=== PATIENT | male | born 1955 | race Caucasian/White ===

== ENCOUNTER → 2023-09-17 | Outpatient (CLI) | payer SELFPAY ==
--- NOTE | 2023-09-17 | IMM_PTH ---
PATIENT: LISS GARCÍA LOC: [facility] U#:[id number] AGE/SX: 68/M ROOM: RE09/17/[address]: Dr. Dontrell Belcher MD : 1955 BED: DIS: 09/17/2023 SPEC #: [id number] RECD: 09/18/23 12:13 STATUS: BRYCE REBobbi #: [id number] BRIDGETT: 09/17/23 00:[address]: Dontrell Belcher DEPT: IMMUNOHISTOCHEMISTRY RECD BY: Melvin Estes Tissues: A - PROSTATE RIGHT B - PROSTATE RIGHT D - PROSTATE LEFT Procedures: 34BE12 (add) P40 (add) P40 (initial) PHYSICIAN & INSTITUTION [place] [id number] SPECIMEN INFORMATION: Tissue Source: A- Prostate, right apex, B- Prostate, right mid, D- Prostate, left apex Clinical Info: Elevated PSA Specimen Number: [id number] A,B,D CPT code: 96037 METHODOLOGY: Deparaffinized sections of prefer/formalin-fixed tissue or PAP/DQ stained slides are incubated with monoclonal/polyclonal antibodies/oligonucleotide probes. Localization is made via biotin free immunoperoxidase method. Appropriate controls are performed and reacted as expected. Results on target cell population are indicated in the following table: RESULTS: ANTIBODY / CLONE RESULT Block A P40 (BC28) negative 34BE12 (34BE12) negative Block B P40 (BC28) negative 34BE12 (34BE12) negative Block D P40 (BC28) negative 34BE12 (34BE12) negative These tests were developed and their performance characteristics determined by [facility]. They may not have been cleared or approved by the U.S. Food and Drug Administration. The FDA has determined that such clearance or approval is not necessary. The above immunohistochemical/dualISH markers are ordered and reviewed by the Pathologist. INTERPRETATION: A. Prostate, right apex, biopsy: Adenocarcinoma. B. Prostate, right mid, biopsy: Adenocarcinoma. D. Prostate, left apex, biopsy: Adenocarcinoma. RAPHAEL/ 09/19/23
--- NOTE | 2023-09-17 | PROSBIL_PTH ---
PATIENT: LISS GARCÍA [facility] U#:[id number] AGE/SX: 68/M ROOM: RE09/17/[address]: Dr. Dontrell Belcher MD : 1955 BED: DIS: 09/17/2023 SPEC #: [id number] RECD: 09/17/23 12:01 STATUS: BRYCE POLLACK #: [id number] BRIDGETT: 09/17/23 00:[address]: Dontrell Belcher DEPT: SURGICAL PATHOLOGY RECD BY: Melvin Estes Tissues: A - PROSTATE RIGHT B - PROSTATE RIGHT C - PROSTATE RIGHT D - PROSTATE LEFT E - PROSTATE LEFT F - PROSTATE LEFT Procedures: PROSTATE BX HEADER OPERATION: Prostate biopsy PRE-OP DIAGNOSIS: Elevated PSA TISSUE SUBMITTED: A - Right apex, B - Right mid, C - Right base, D - Left apex, E - Left mid, F - Left base MICROSCOPIC DIAGNOSIS A. Right prostate, apex, core biopsy: Prostatic adenocarcinoma. Irma grade: 3+3=6 Number of cores involved: 1/2 Proportion of tissue involved: <5 % Perineural invasion: Not identified. Greatest tumor length: <0.1 cm Focal high-grade prostatic intraepithelial neoplasia (HGPIN). See comment. B. Right prostate, mid, core biopsy: Prostatic adenocarcinoma. Wilberforce grade: 3+4=6 Number of cores involved: 1/2 Proportion of tissue involved: <5 % Perineural invasion: Not identified. Greatest tumor length: <0.3 cm, discontinues See comment. C. Right prostate, base, core biopsy: Prostatic adenocarcinoma. Wilberforce grade: 3+4=7 Number of cores involved: 2/2 Proportion of tissue involved: ~60 % Perineural invasion: Present Greatest tumor length: 1.1 cm D. Left prostate, apex, core biopsy: Prostatic adenocarcinoma. Irma grade: 3+4=7 Number of cores involved: 1/2 Proportion of tissue involved: ~5 % Perineural invasion: Not identified. Greatest tumor length: 0.2cm See comment. E. Left prostate, mid, core biopsy: Prostatic adenocarcinoma. Wilberforce grade: 3+4=7 Number of cores involved: 2/2 Proportion of tissue involved: 70-80 % Perineural invasion: Present Greatest tumor length: 0.9 cm F. Left prostate, base, core biopsy: Prostatic adenocarcinoma. Wilberforce grade: 3+4=7 Number of cores involved: 2/2 Proportion of tissue involved: 70-80 % Perineural invasion: Present Greatest tumor length: 1.3 cm Focal mild acute and chronic inflammation SJ/mr 09/18/23 COMMENT A, B& D. Immunohistochemistry ([id number]) supports the above diagnosis. MICROSCOPIC DESCRIPTION Slides are reviewed. GROSS DESCRIPTION A - Received is one container designated prostate, right apex. The specimen consists of two elongated fragments of light hood-white soft tissue each measuring 1.0 cm in length and 0.1 cm in diameter. The specimen is totally submitted in one cassette. B - Received is one container designated prostate, right mid. The specimen consists of two elongated fragments of light hood-white soft tissue each measuring 1.1 cm in length and 0.1 cm in diameter. The specimen is totally submitted in one cassette. C - Received is one container designated prostate, right base. The specimen consists of two elongated fragments of light hood-white soft tissue measuring 1.0 and 1.5 cm in length and 0.1 cm in diameter. The specimen is totally submitted in one cassette. D - Received is one container designated prostate, left apex. The specimen consists of two elongated fragments of light hood-white soft tissue measuring 0.8 and 1.0 cm in length and 0.1 cm in diameter. The specimen is totally submitted in one cassette. E - Received is one container designated prostate, left mid. The specimen consists of two elongated fragments of light hood-white soft tissue each measuring 1.1 cm in length and 0.1 cm in diameter. The specimen is totally submitted in one cassette. F - Received is one container designated prostate, left base. The specimen consists of two elongated fragments of light hood-white soft tissue each measuring 1.5 cm in length and 0.1 cm in diameter. The specimen is totally submitted in one cassette. RAPHAEL/ 09/17/23 TC:0 CPT: G0146
== END | disposition home or self-care (01) ==
LOC: LABSPEC 12:00
PROVIDERS: Visit Provider Urology
DX: R97.20 Elevated prostate specific antigen [PSA] (principal)
CPT/HCPCS: 88305; 88341; 88342; G0416

== ENCOUNTER → 2023-09-30 | Outpatient (CLI) | payer MEDICARE, BC, SELFPAY ==
--- NOTE | 2023-09-30 11:00 | PET_ITS ---
EXAMINATION: 18 F Pylarify PET-CT HISTORY: A 68-year-old male with history of primary prostate carcinoma presenting for presumed initial staging examination. COMPARISON EXAMINATION: None available INDEX LESION SIZE PROMISE SCORE SUV INTERPRETATION Prostate gland, bilateral base 36.4-mm 2 13.15 Fulfills quantitative criteria for viable neoplasm NON-INDEX LESION SIZE PROMISE SCORE SUV INTERPRETATION Bilateral thoracic perihilum 1 2.5 Quantitative criteria for viable neoplasm are not fulfilled TECHNIQUE: Following the intravenous administration of 9.9 mCi of 18 F Pylarify via the right antecubital fossa, image acquisitions of the head, neck, chest, abdomen and pelvis to the level of the mid thigh at 73 minutes post-tracer distribution reveal: The examination was interpreted using the EANM (Enoch et al., Journal of Nuclear Medicine Molecular Imaging 44:1622, 2017) and PROMISE (Mago et al., Journal of Nuclear Medicine 59:469, 2018) interpretive criteria. HEIGHT: 71 inches. WEIGHT: 195 lbs. PSMA expression score PROMISE criteria: High (3): SUV ? parotid-salivary gland, intermediate (2): SUV ? liver, low (1): > blood pool, < liver, (0): < blood pool. SUV reference values: Parotid glands 24.36. Normal liver parenchyma 7.4. Blood pool 1.6. FINDINGS: Head/Neck: Symmetric radiotracer concentration is defined in the bilateral parotid and submandibular glands. There is physiologic tracer activity within the context of the nasal cavity. There is no evidence of abnormal increased radiopharmaceutical concentration within the context of the cranial vault. CHEST: Facilitated uptake is noted in the bilateral thoracic perihilum with a calculated maximal standard uptake value of 2.51. The PROMISE score is 1. Pertinent chest CT findings are as follows. There is atherosclerotic calcification defined in the thoracic aorta without evidence of dilatation-aneurysm formation. Coronary arterial calcification is observed. Scattered mediastinal and bilateral axillary soft tissue densities demonstrate no evidence of increased tracer uptake. There are no parenchymal densities-nodules defined in the bilateral hemithorax with quantitatively significant increased radiotracer uptake. Abdomen/Pelvis: Facilitated uptake is noted in the base of the prostate gland to the right and left of the midline. The calculated maximal standard uptake value is 13.15. The PROMISE score is 2. The maximal axial diameter of the metabolic abnormality is 36.4-mm. Physiologic radiopharmaceutical concentration is otherwise noted in the hepatic and splenic parenchyma, visualized intestinal tract, right and left kidneys, urinary bladder. Review of CT of the abdomen and pelvis reveals the following. There is atherosclerotic calcification defined in the abdominal aorta without evidence of dilatation-aneurysm formation. Abdominal-pelvic arterial calcification is observed. Colonic diverticulosis is evident without manifestations of diverticulitis. Right and left inguinal soft tissue densities are ametabolic. SKELETAL: Degenerative changes are noted in the cervical, thoracic and lumbar spine without evidence of increased radiopharmaceutical concentration. PET/PET/CT Tumor Base -Thigh Init IMPRESSION: 1. ABNORMAL EXAMINATION INDICATIVE OF MALIGNANT VIABLE NEOPLASM. 2. Increased tracer uptake noted in the base of the prostate gland to the left and right of the midline fulfills quantitative criteria for malignant transformation. (Eibronwyn et al., Journal of Nuclear Medicine 59:469, 2018). 3. Facilitated uptake noted in the bilateral thoracic perihilum does not fulfill quantitative criteria for viable neoplasia. Electronic Signature Ramo Baker DO Accurate Quantification of SUVs and standardized PROMISE scores for this report are calculated using the exclusive [employer], ([place].S. Patent No. [phone] [place] patent [phone] ). Standardization and correction of the FDG SUV metric exclusively available with [employer] intellectual property, allow for vendor non-specific objective quantitative sequential FDG PET-CT comparison and otherwise unobtainable optimization of the sensitivity and specificity of the examination. https://[employer] Electronically Signed: Ramo Baker DO at 8:05 EDT ,
== END | disposition home or self-care (01) ==
LOC: ONC 10:33
PROVIDERS: PCP Nurse Practitioner Family; Referring Provider Urology; Visit Provider Urology
DX: C61 Malignant neoplasm of prostate (principal)
CPT/HCPCS: 78815; A9595

== ENCOUNTER 2023-11-12 13:38 | Inpatient (IN) | payer MEDICARE, BC, SELFPAY ==
--- NOTE | 2023-11-03 07:22 | EKG12_ITS ---
Test Reason : PREOP Blood Pressure : / mmHG Vent. Rate : 051 BPM Atrial Rate : 051 BPM P-R Int : 162 ms QRS Dur : 082 ms QT Int : 440 ms P-R-T Axes : 014 -12 039 degrees QTc Int : 405 ms Sinus bradycardia Otherwise normal ECG Confirmed by Williams Verma ([id number]), editor managing director SAMARA BROWN ([id number]) on 11/03/2023 1:57:22 PM Referred By: Dontrell Belcher Confirmed By:Williams Verma
[2023-11-03 07:52] LABS: Hematocrit 46.1 % (40-54); Hemoglobin 15.9 g/dL (13.0-16.5); Mean Corp Hgb Conc 34.5 g/dL (32-36); Mean Corpuscular Hgb 31.2 pg (27.0-32.0); Mean Corpuscular Volume 90.6 fL (80-94); Mean Platelet Vol. 10.9 fl (6.2-12.0); Platelet Count 172 K/mm3 (150-450); RBC Distribution Width CV 12.2 % (11.6-14.6); RBC Distribution Width SD 40.6 fl (35.1-43.9); Red Blood Count 5.09 M/mm3 (4.6-6.2); White Blood Count 6.6 K/mm3 (4.4-11.0)
[2023-11-12] VITALS (15 sets, daily range): BP systolic 97–159; BP diastolic 62–84; PULSE 64–100; RESP 16–20; TEMP 36.1–37.2; O2SAT 94–100; BMI 26.4
--- NOTE | 2023-11-12 06:28 | PRE.ANES_ITS ---
ASA Classification* ASA Classification ASA Classification: 2 Assessment & Plan Anesthesia* Anesthesia Assessment Anesthesia Assessment: Discussed sedation and/or anesthesia options, risks, benefits, and alternatives with patient/parents/legal guardian/POA. Questions invited. The patient/parents/legal guardian/POA seems to understand and agrees to proceed with anesthesia plan. Reviewed the physical assessment, medical history, allergy history and patient home medications list prior to surgery/procedure/anesthetic and documented any changes. Performed airway and anesthesia risk assessments. Anesthesia Type Anesthesia Type: General (see written pre anesthesia record for full assessment) Pre-Assessment Diagnosis/Proposed Procedure Planned Operative Procedure(s): Laparoscopic Robotic Radical Prostatectomy Anesthesia History Anesthesia History - product support representative: Anesthesia History - product support representative Hx Hospitalization No 10/31/23 08:56 Any Problems With Anesthesia No 10/31/23 08:56 Cholinesterase deficiency No 10/31/23 08:56 You/Your Family Experience No 10/31/23 08:56 fever (hyperthermia) with Relationship Recent Exposure to Contagious Disease Does patient have nerve No 10/31/23 08:56 stimulator Patient instructed to have device shut off --Does patient have Pacemaker or ICD? When Was Last Pacemaker Check QUESTION #4 FULL TEXT: You/Your Family Experience fever (hyperthermia) with Anesthesia Last Oral Intake Last Oral intake: Last Oral Intake NPO since Meds taken in AM with sips of water? Meds patient instructed to take am of surgery PONV PONV - product support representative: PONV - product support representative Female No 10/31/23 08:56 HX of Motion Sickness No 10/31/23 08:56 HX of N/V After Surgery No 10/31/23 08:56 Non-Smoker Yes 10/31/23 08:56 Duration of Surgery greater Yes 10/31/23 08:56 than 60 minutes Number of Risk Factors 2 10/31/23 08:56 PONV Score Moderate Risk 10/31/23 08:56 Respiratory Assessment Respiratory Assessment - product support representative: Respiratory Tract Infection Hx - product support representative Hx Respiratory Tract Infection No 10/31/23 08:56 STOP Sleep Apnea STOP Sleep Apnea - product support representative: STOP Sleep Apnea - product support representative Hx Hypertension Yes: WHITE COAT SYNDROME 10/31/23 08:56 Hx Sleep Apnea No 10/31/23 08:56 CPAP BIPAP Do you snore loudly (louder No 10/31/23 08:56 than talking or can be heard Do you often feel tired/ No 10/31/23 08:56 fatigued/ sleepy during daytime? Has anyone observed you stop No 10/31/23 08:56 breathing during sleep? STOP Results Negative 10/31/23 08:56 QUESTION #5 FULL TEXT : Do you snore loudly (louder than talking or can be heard through closed doors)? Tobacco Use History Tobacco Use History - product support representative: Tobacco Use History - product support representative Tobacco Use Smoking Status Never smoker 10/31/23 08:56 Hx Tobacco Use No 10/31/23 08:56 Years Smoking Packs Smoked per Day Smoking Cessation Date was within the last 15 years Hx Smoking Cessation Date Hx Smoking Cessation Counseling Hematologic Medial History Hematologic Hx - product support representative: Hematologic Medical Hx - kiln puller Hx of Blood Transfusion No 10/31/23 08:56 Hx of Transfusion in last 3 No 10/31/23 08:56 Months Date of Last Transfusion (if within last 3 months) Ever experience any problems No 10/31/23 08:56 with transfusion(s)? Specify any problems Hx of Preganancy in last 3 N/A 10/31/23 08:56 Months Nurse Filling Out Transfusion MGRIFFITH 10/31/23 08:56 & Questions: Date: 10/31/23 10/31/23 08:56 Time: 08:58 10/31/23 08:56 Patient unable to answer at this time (ie. confused, unrespo /Reproduction History /Reproductive History - product support representative: /Reproductive Hx- product support representative Hx Now Gestational Age (in weeks): EDC: Hx Hx Para Hx Section SAB Active Medications Active Medications: Current Medications Generic Name Dose Route Start Last Admin Trade Name Freq PRN Reason Stop Dose Admin Cefazolin Sodium 2 gm/ Sodium 110 mls @ 150 mls/hr 11/12/23 07:30 Chloride IV 11/12/23 08:13 PREOP ONE Lactated Ringer's 1,000 mls @ 15 mls/hr 11/12/23 06:30 IV .Q48H [facility] Anesthesia Focused Assessment* Airway Assessment Mouth opens: >3 cm Mallampati Score: II Focused Labs Anesthesia Preop lab: CBC WBC 6.6 K/mm3 (4.4-11.0) 11/03/23 07:25 RBC 5.09 M/mm3 (4.6-6.2) 11/03/23 07:25 Hgb 15.9 g/dL (13.0-16.5) 11/03/23 07:25 Hct 46.1 % (40-54) 11/03/23 07:25 Plt Count 172 K/mm3 (150-450) 11/03/23 07:25 CHEMISTRY COAG Review of Systems (Anesthesia) ROS Narrative System reviewed and no additional complaints, except as documented. 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
[2023-11-12] MEDS: Lactated Ringers 1,000 ML 15 ML IV ×2 (06:39→11:55)
[2023-11-12] MEDS: Cefazolin 2 GM in 0.9% Normal Saline (100mL Bag) 100 ML IV (07:25)
--- NOTE | 2023-11-12 07:29 | PCM.HP.STD ---
HPI - General General Date of Service: 11/12/23 Chief Complaint: Prostate cancer HPI Narrative LISS GARCÍA, is a 68 M who presents robotic assisted radical prostatectomy with bilateral lymph node dissection and bilateral nerve sparing he does have a very large 70 g prostate very high PSA PET scan was only positive in the prostate. [facility] Medical History Wears contact lenses Wears dentures Alcohol use Non-smoker Leg cramps White coat syndrome without diagnosis of hypertension Home Medications ?Medication ?Instructions ?Recorded ?Last Taken ?Type BEET ROOT 800 mg PO DAILY 10/31/23 11/11/23 History garlic 1,000 mg capsule 1,000 mg PO DAILY 10/31/23 11/11/23 History ciprofloxacin HCl 500 mg tablet 500 mg PO BID #20 tabs 11/12/23 Unknown Rx (Cipro) docusate sodium 100 mg capsule 100 mg PO BID #20 caps 11/12/23 Unknown Rx (Colace) oxycodone 5 mg tablet 5 mg PO Q6H PRN pain 7 days #14 11/12/23 Unknown Rx tabs Allergy/AdvReac Type Severity Reaction Status Date / Time No Known Allergies Allergy Verified 10/31/23 08:51 Surgical History History of dental surgery Social History Smoking Status: Never smoker Vital Signs Vital Signs Vital Signs: 11/12/23 06:37 11/12/23 06:41 Temperature 98.3 F Temperature Source Temporal Pulse Rate 64 Respiratory Rate 16 Respiratory Pattern Normal Blood Pressure 159/75 H Blood Pressure Mean 103 Blood Pressure Source Monitor Blood Pressure Position Semi-Fowlers Blood Pressure Location Right Arm Pulse Ox 100 Oxygen Delivery Method Room Air Weight Weight: 86 kg Body Mass Index (BMI) 26.4 Physical Exam Const alert and oriented x3 General Appearance: cooperative HEENT normocephalic, head/scalp atraumatic, EAC's normal and TM's normal bilaterally Eyes PERRL and EOMs intact bilaterally Pupil: sluggish Neck no lymphadenopathy, supple and no JVD General: trachea midline Lymph Lymphatic: no lymphadenopathy noted, lymphedema and lymphadenopathy Resp normal respiratory effort, normal air movement and clear to auscultation bilaterally Cardio regular rate, regular rhythm and peripheral pulses 2+ throughout GI soft to palpation, non-tender and non-distended Extremity normal capillary refill and no clubbing, cyanosis or edema General Extremity: no tenderness to palpation of joints or extremities Skin no rashes or lesions noted General Skin Exam: turgor normal Lesions: no lesions Rashes: no rashes Neuro CN's II-XII intact bilaterally Speech: speech normal Motor Exam: strength 5/5 throughout; Negative for general weakness Psych thought process normal, cooperative and affect normal Appearance: appropriate Results Lab / Micro Data 11/03/23 07:25 Assessment & Plan Assessment/Plan (1) Malignant neoplasm of prostate: PLAN: Plan to proceed with a robotic radical prostatectomy bilateral lymph node dissection and bilateral nerve sparing
--- NOTE | 2023-11-12 07:30 | PROST_PTH ---
PATIENT: LISS GARCÍA LOC: [facility] U#:[id number] AGE/SX: 68/M ROOM: [facility] RE11/12/[address]: Dr. Dontrell Belcher MD : 1955 BED: 1 DIS: 11/13/2023 SPEC #: [id number] RECD: 11/12/23 12:59 STATUS: BRYCE POLLACK #: [id number] BRIDGETT: 11/12/23 07:[address]: Dontrell Belcher DEPT: SURGICAL PATHOLOGY RECD BY: Avtar Cortez ENTERED: 11/12/23 14:00 SP TYPE: PROSTATE OTHR DR: MD Ariadna Bowen, GLUE SIZE MACHINE OPERATOR-C Tissues: A - Lymph node of pelvis, NOS B - Lymph node of pelvis, NOS C - Prostate, NOS Procedures: Surgery Specimen Level V Surgery Specimen Level HEADER OPERATION: Laparoscopic robotic radical prostatectomy PRE-OP DIAGNOSIS: Malignant neoplasm of prostate TISSUE SUBMITTED: A- Left pelvic lymph node, B- Right pelvic lymph node, C- Prostate MICROSCOPIC DIAGNOSIS A. Left pelvic lymph node, regional dissection: One lymph node, negative for metastatic carcinoma. B. Right pelvic lymph node, regional dissection: Two out of two lymph node, negative for metastatic carcinoma. C. Prostate, radical prostatectomy: Prostatic adenocarcinoma. See cancer summary in the comment section. RAPHAEL/ 11/17/2023 COMMENT C. PROSTATE CANCER (RADICAL) SUMMARY: Procedure: Radical Prostatectomy Prostate Size: Weight: 89.0gm Size: 5.5cm transversely, 4.0cm anterior-posteriorly, 5.6cm craniocaudally Histologic Type: Adenocarcinoma Histologic Grade: Grade group 2 (Irma grade 3+4 =7) Intraductal Carcinoma: Present, focal Tumor Quantitation: Estimated percentage of prostate involved by tumor: ~30% Tumor size: Tumor involves both right and left lobes, apical, mid, basal portion prostate. Tumor in the right lobe approximately measures 2.5 x 1.0 x 5.6cm and tumor in the left lobe approximately measures 2.0 x 1.0 x 5.6cm (measured microscopically) Extraprostatic Extension: Present, non-focal. Location of extraprostatic extension: Right lateral and posterior lobe and left lateral and posterior. Urinary Bladder Neck Invasion: Not identified. Seminal Vesicle Invasion: Present (involves both right and left seminal vesicles) Lymphvascular Invasion: Not identified. Perineural Invasion: Present, frequent Margins: Margins involved by invasive carcinoma Largest focus of carcinoma present at apical margin and measures 1.6 x 0.8cm Focality: Multifocal Location of positive margin: Apical, right posterior and left lateral posterior margins. Margin positivity in areas of extraprostatic extension: Not identified. [place] pattern at positive margin: 3+4 Regional Lymph Nodes: Number of lymph nodes involved: 0 Total number of lymph nodes examined: 3 Treatment Effect: No known presurgical therapy Additional Pathologic Findings: High-grade prostatic intraepithelial neoplasia (HGPIN). Chronic inflammation. Benign prostatic hyperplasia, glandular and stromal type. Ancillary studies: Not preformed. Clinical History: Please make reference to previous specimen [id number] right prostate apex, mid and base and left prostate apex, mid, and base core biopsies diagnosis of prostatic adenocarcinoma. PATHOLOGIC STAGE: pT3b pN0 pMx The above summary is in compliance with [employer] [place] [employer] (CAP) Cancer Protocols Checklist and [place] Joint Committee on Cancer (AJCC), Staging Manual, 8th Ed. MICROSCOPIC DESCRIPTION Slides are reviewed. GROSS DESCRIPTION A. Received in fixative is one container labeled with the patient's name and designated Left pelvic lymph node. The specimen consists of an irregular fragment of yellow fatty tissue measuring 3.5 x 2.5 x 1.0cm. Dissection reveals a hood nodule measuring 3.3cm in length. The nodule is serially sectioned and totally submitted in two cassettes. B. Received in fixative is one container labeled with the patient's name and designated Right pelvic lymph node. The specimen consists of two irregular fragments of hood-yellow soft tissue measuring in aggregate 4.5 x 3.0 x 1.0cm. Dissection reveals two hood nodules ranging in size from 2.0 to 2.2cm. Each nodule is bisected and submitted separately in two cassettes. C. Received in fixative is one container labeled with the patient's name and designated prostate. The specimen consists of a prostate with attached right and left seminal vesicles. The gland weighs 89 gm and measures 5.5 cm transversely, 4.0 cm anterior-posteriorly and 5.6 cm craniocaudally. The specimen is differentially inked as follows: anterior surface - red, entire posterior surface - black, right half - blue, left half - green. The specimen is serially sectioned at 3.0 to 4.0 mm interval. Serial sections do not reveal a distinct mass lesion. Lead Sustainability Specialist sections are submitted in 20 cassettes as follows: 1 - distal urethral margin, shave, 2 - bladder neck shave margin, 3 - right and left seminal vesicles, 4 - most basal section of prostate, 5-8- apex of gland,-9 -14- mid portion of gland, 15-18- basal portion of gland. NOTE: The specimen is submitted after additional fixation. AM: 11/13/2023 TC:0 CPT: 39233,84123j5
[2023-11-12] MEDS: Bupivacaine Mpf 0.5% 30 ML VIAL (11:15)
--- NOTE | 2023-11-12 11:18 | DCINST_ITS ---
Discharge Instructions Diet Discharge Diet: Light diet - advance as tolerated and Soft diet Activity Discharge Activity: May Not Drive (while taking narcotic pain medications.) Lifting Restrictions: no lifting > 10 lbs Dressing / Incision Call your doctor if you observe: Fever of 101 or Higher Catheter: Amin to leg bag and Amin to large bag Drain: [place] Additional Dressing/Incision Instructions:: amin to gravity Follow Up Care Please Follow Up With: Dontrell Belcher MD When: Call [phone] for an appointment Test Results: Test results from this visit will be discussed in further detail at your follow- up appointment, if applicable. Discharge Plan Admission Primary Reason for Your Visit: Radical prostatectomy Attending Provider: Dontrell Belcher Primary Care Provider: Ariadna Wylie Consulting Providers: Wesley Mathias Patient Instructions: Radical Prostatectomy, Radical Prostatectomy Dc Print Language: Arabic Discharge Orders/Prescriptions Prescriptions: New ciprofloxacin HCl [Cipro] 500 mg tablet 500 mg PO BID Qty: 20 0RF docusate sodium [Colace] 100 mg capsule 100 mg PO BID Qty: 20 0RF oxycodone 5 mg tablet 5 mg PO Q6H PRN (Reason: pain) 7 Days Qty: 14 0RF Continued garlic 1,000 mg capsule 1,000 mg PO DAILY BEET ROOT 800 mg PO DAILY Other Ambulatory Orders: 12 Lead EKG (Routine) Timeframe: 20231103 Location: None Selected Ordered By: Dr. Wesley Mathias Referrals / Follow Up: Ariadna Wylie, JAVASCRIPT APPLICATION DEVELOPER-C [Primary Care Provider] - Disposition Disposition (needs filled in before D/C Order can be placed): Home, Self Care
--- NOTE | 2023-11-12 11:19 | OP.PCM_ITS ---
Report of Operation Date of Procedure: 11/12/23 Pre-Operative Diagnosis: Prostate cancer Post-Operative Diagnosis: The same Surgery/Procedure Performed:: Laparoscopic robotic assisted radical prostatectomy and bilateral pelvic lymph node dissection, bladder neck reconstruction and suspension of the urethra Description of Surgical Findings:: This is a 68-year-old male with a history of prostate cancer he has a very large prostate but 70 g who has a very high PSA and Irma 7 disease PET scan was positive in the prostate only negative elsewhere but organ to proceed with a radical prostatectomy with an attempt bilateral nerve sparing bladder neck sparing as well and also do a pelvic lymph node dissection. Understands the risk of the procedure risk of incontinence and loss of erections also risk that the cancer is not curative and he may need more surgery or treatment such as radiation or hormone therapy. Patient was taken back to the operating room after induction of anesthesia he was placed upon on the table he was secured using the pink foams both his arms back were secured and that his legs were placed in stirrups we made sure all pressure points were padded and secured we did a tilt test the patient did not slide, the penis and testicles were then prepped and draped in the lower abdomen was also prepped and draped, we then made an incision in the umbilicus infiltrated the umbilicus with Marcaine dissected down to the fascia placed a Veress needle into the peritoneal cavity and placed our camera trocar right arm trocar to left arm trocars air seal port and suction port. The patient was placed in Trendelenburg and the robot was then docked we then proceeded with the dissection first thing I did was released the colon off the lateral sidewall this then allowed the sigmoid colon to be retracted straight off the pelvis and allowed approach to the underside of the prostate I then identified the vas deferens and the right side dissected the vas deferens down below until I got to the endopelvic fascia I then opened up the peritoneum on the left side below the vas deferens and then we dissected first below the vas deferens and the prostate coming through the the fascia below the prostate. I then we did switch to a 30 degree lens up and then continue with the dissection of the prostate I then dissected out the vas deferens and seminal vesicles I then came through the pedicle on the left side right on the edge of the prostate and then we sweep the tissue laterally both sides of the prostate and then the right side we swept all the tissue off the underside of the prostate laterally as well and then we came through the pedicles on the left side was dissected out the vas deferens and seminal vesicles on the left side once we done the underside dissection of the prostate extensively then at this point I pulled out of the pelvis we did not drop the bladder I then proceeded with the lymph node dissection we identified the right pelvic lymph nodes we dissected these off the right iliac artery and vein identified the obturator space and dissected all the lymphatic tissue off the obturator space we used the vessel sealer control for bleeding and lymphatic tissue this packet was then handed off to the Speth to the nurses and then we went to the right side and again did a pelvic lymph node dissection on the right side identify the external iliac artery and vein dissected all the lymphatic tissue off the vein and artery up to the noted cloque and then we dissect down to the obturator nerve and then dissected back off the nerve all the lymph node packet off the vein and artery we used the vessel sealer again to control for bleeding while we did this. Then we turned our attention of the prostate I did not do a bladder neck dissection I did not do a apical side dissection I do started off with the dissection at the bladder neck and prostate junction as I was taken off the bladder off the prostate we then got into the bladder and we identified had a very large bladder with extremely large median lobe the catheter was then deflated I then continued to dissect the bladder off the prostate all the way around this created a very large opening in the bladder since it was extremely large prostate and connection to the bladder was pretty wide so that we did a wide dissection in the bladder neck and then we came inferior we went identify the left and right ureteral orifice and then dissected between the prostate and the ureteral orifices inferiorly until we reached our seminal vesicles and vas deferens had already been dissected out I then started the dissection on the right side the neurovascular bundles I then already dissected off I then followed the prostate coming off on the right side all the way anteriorly dissecting the between the prostate and the fascia freeing up the prostate from the fascia on the underside we then went anterior to the prostate and then we went to the right side again continued to dissect the right all along the edge of the prostate all the way circumferentially until we got to the urethra we then went underneath the dorsal vein complex made a small vein and dorsal vein complex and the vein was identified this was stitched closed I then went down to the urethra we did a circumferential dissection around the urethra and then transected the urethra had a very nice urethral stump and the prostate was removed intact so it was very nice bladder neck sparing and apical bladder apical tissue sparing dissection lymph node dissection was good and then also the right and left neurovascular bundles were mostly spared on both sides somewhat adherent on the right side but came off fairly nicely on both sides. We then did a bladder neck reconstruction I closed the bladder neck in a tennis racquet fashion using 3-0 Vicryl I then everted the mucosa so that we had a nice mucosa the mucosa anastomosis I then did anastomosis and suspended the urethra between the prostate with anastomosis with a running stitch using a 3 oh strata fix running stitch between the reconstructed bladder neck and the urethra we placed a 16 Iraqi catheter through and then initially anastomosis around the catheter and then we flushed and there was no leakage and then the prostate was then extracted to the umbilicus we placed the bladder flap over the prostate blood loss at this point was only about 200 cc, very nice dissection complete removal of the prostate good sparing of the bladder neck and also the apical tissue. After extraction the prostate we closed all the ports closed with subcuticular stitches flush the catheter until it is clear patient anesthetic was reversed taken back to the PACU in good condition he will stay overnight with a catheter. Surgeon: Dontrell Belcher Type of Anesthesia: General Drains: 16 fr [place] Estimated Blood Loss (mL): 200 Admit VTE Documentation VTE Present on Admission: No VTE Mechan Device Prophylaxis: SCD's VTE Pharm Prophylaxis ordered?: No
--- NOTE | 2023-11-12 11:36 | PCM.POST.ANE ---
Anesthesia: Postop Eval I Current Vital Signs Temperature: 97.5 F Pulse Rate: 99 Blood Pressure: 97/75 Respiratory Rate: 20 Pulse Ox: 97 Oxygen Delivery Method: Room Air Assessment Airway patent: Yes Spontaneous unlabored respirations: Yes Mental status: Awake and Calm nausea: No Vomiting: No Anesthesia Complication: No Fluid Hydration Crystalloid volume administer (ml): 1,800 Total IV fluid infused: 1,800 Progress Note Anesthesia document: Postop Eval 1 completed: Yes
--- NOTE | 2023-11-12 12:21 | POSTOPAN2_ITS ---
Anesthesia Postop Eval I Sum Postop Eval Completion status Anesthesia document: Postop Eval 1 completed: Yes Anesthesia Postop Eval I Summary Anesthesia Postop Eval I Summary: Anesthesia Postop Eval I: Assessment Summary Airway patent Yes 11/12/23 11:43 SITE SUPERVISING TECHNICAL OPERATOR.[email or web address] Spontaneous unlabored Yes 11/12/23 11:43 SITE SUPERVISING TECHNICAL OPERATOR.GDOTT respirations Mental status Awake,Calm 11/12/23 11:43 SITE SUPERVISING TECHNICAL OPERATOR.GDOTT nausea No 11/12/23 11:43 SITE SUPERVISING TECHNICAL OPERATOR.GDOTT Vomiting No 11/12/23 11:43 SITE SUPERVISING TECHNICAL OPERATOR.GDOTT Anesthesia Postop Eval I: Fluid Summary Crystalloid volume administer 1,800 11/12/23 11:43 SITE SUPERVISING TECHNICAL OPERATOR.GDOTT (ml) Colloids volume administered ( ml) Blood Product volume administered (ml) Total IV fluid infused 1,800 11/12/23 11:43 SITE SUPERVISING TECHNICAL OPERATOR.GDOTT Anesthesia Postop Eval I: Summary Notes Anesthesia Complication No 11/12/23 11:43 SITE SUPERVISING TECHNICAL OPERATOR.GDOTT Anesthesia Complication Comment: Post-operative progress note Anesthesia: Postop Eval II Evaluation Mental status: Awake Pain Level: 0 nausea: No Vomiting: No Complications Anesthesia Complication: No
--- NOTE | 2023-11-12 12:21 | PCM.POSTANE2 ---
Anesthesia Postop Eval I Sum Postop Eval Completion status Anesthesia document: Postop Eval 1 completed: Yes Anesthesia Postop Eval I Summary Anesthesia Postop Eval I Summary: Anesthesia Postop Eval I: Assessment Summary Airway patent Yes 11/12/23 11:43 [email or web address].[email or web address] Spontaneous unlabored Yes 11/12/23 11:43 TILE EDGER.[email or web address] respirations Mental status Awake,Calm 11/12/23 11:43 TILE EDGER.[email or web address] nausea No 11/12/23 11:43 TILE EDGER.GDOTT Vomiting No 11/12/23 11:43 TILE EDGER.GDOTT Anesthesia Postop Eval I: Fluid Summary Crystalloid volume administer 1,800 11/12/23 11:43 TILE EDGER.GDOTT (ml) Colloids volume administered ( ml) Blood Product volume administered (ml) Total IV fluid infused 1,800 11/12/23 11:43 TILE EDGER.GDOTT Anesthesia Postop Eval I: Summary Notes Anesthesia Complication No 11/12/23 11:43 TILE EDGER.GDOTT Anesthesia Complication Comment: Post-operative progress note Anesthesia: Postop Eval II Evaluation Mental status: Awake Pain Level: 0 nausea: No Vomiting: No Complications Anesthesia Complication: No
[2023-11-12] MEDS: 0.9% Normal Saline (1000mL) 1,000 ML 125 ML IV ×2 (14:12→22:38)
[2023-11-12] MEDS: Acetaminophen 325 MG Tablet PO ×2 (14:12→23:10)
[2023-11-12] MEDS: Cefazolin 1 GM/50 ML BAG IV ×2 (15:36→22:55)
[2023-11-12] MEDS: Docusate Sodium 100 MG Capsule 200 MG PO (22:33)
[2023-11-12] MEDS: Gentamicin Sulfate 1 OPTH.BTL 1 DRP RIGHT EYE (22:55)
[2023-11-13 04:00] VITALS: BP 132/70; PULSE 83; RESP 18; TEMP 37.1; O2SAT 98
[2023-11-13] MEDS: 0.9% Normal Saline (1000mL) 1,000 ML 125 ML IV (06:10)
[2023-11-13] MEDS: Gentamicin Sulfate 1 OPTH.BTL 1 DRP RIGHT EYE (06:10)
--- NOTE | 2023-11-13 07:36 | PCM.PN.GU ---
Subjective Subjective 58-year-old male status post radical prostatectomy he is doing well plan to send him home today with a Toussaint catheter. Hep-Lock IV fluids advance to regular diet and ambulate. Objective Data Objective Data Vital Signs: Vital Signs Temp Pulse Resp BP Pulse Ox O2 Del Method O2 Flow Rate 98.8 F 83 18 132/70 H 98 Room Air 2 11/13/23 04:00 11/13/23 04:00 11/13/23 04:00 11/13/23 04:00 11/13/23 04:00 11/13/23 04:00 11/12/23 12:45 Oxygen Flow Rate (L/min) 2 Oxygen Delivery Method Room Air Weight: 86 kg Body Mass Index (BMI) 26.4 Intake & Output: Intake and Output for Last 24 Hours 11/11/23 11/12/23 11/13/23 23:59 23:59 23:59 Intake Total 4044.25 / 4044.25 941.67 / 941.67 Output Total 1300 / 1300 1250 / 1250 Balance 2744.25 / 2744.25 -308.33 / -308.33 Lab / Micro Data 11/03/23 07:25
[2023-11-13] MEDS: Acetaminophen 325 MG Tablet PO (07:43)
[2023-11-13] MEDS: Docusate Sodium 100 MG Capsule 200 MG PO (07:44)
[2023-11-13 08:30] VITALS: BP 134/79; PULSE 81; RESP 18; TEMP 36.7; O2SAT 98
--- NOTE | 2023-11-13 09:00 | CASEMGMT ---
FERNANDO DUMONT Assessment: Face to Face with pt for initial transition planning/care coordination assessment. RN JULIA introduced self and role at [facility], pt voices understanding and consents to assessment. Pt sitting up in bed in no distress, sitting at bedside. Pt is A&O x4 and answers all questions appropriately at this time. Care providers, pharmacy, and demographics verified/updated. Admitting Dx: Laparoscopic Robotic Radical prostate PCP: Chepeerer Specialists: Denies Preferred Pharmacy: [facility] Insurance: Medicare, Settle Prescription Benefit: yes LNOK: Deepthi - , Crow - son Living Arrangements: Pt lives with in a bi-level home with 3 +6 steps to enter and handrails. States I with ADLs and IADLs. Transportation: Pt drives self and denies concerns with transportation. able to drive pt home upon D/C. DME: Denies HHC/SNF: Denies Hx of. Pt states no concerns with going home at time of dc. Pt states no further concerns/needs. CM to follow. Advised pt to ask CM if any further question/concerns/needs arise, voices understanding. Pt Goal: Home Plan: Home no needs Adriano KING CM
== END 2023-11-13 10:02 | disposition home or self-care (01) | DRG 708 ==
LOC: SDC 14:05 → MS3 14:05
PROVIDERS: Anesthesiology; Admitting Provider Urology; PCP Nurse Practitioner Family; Referring Provider Urology; Visit Provider Urology
PROC: 0VT04ZZ Resection of Prostate, Percutaneous Endoscopic Approach (ICD-10-PCS; CPT 55866; principal; 2023-11-12 07:10)
DX: C61 Malignant neoplasm of prostate (principal)
CPT/HCPCS: 36415; 85027; 86850; 86900; 86901; 88307; 88309; 93005; 94668; 99252; J7030; J7120; G0463; J2405

== ENCOUNTER → 2024-01-03 | Outpatient (CLI) | payer MEDICARE, BC, SELFPAY ==
[2024-01-03 09:06] LABS: PSA,Total- Diagnostic 0.02 ng/mL (0.0-4.0)
== END | disposition home or self-care (01) ==
LOC: LAB 07:00
PROVIDERS: PCP Nurse Practitioner Family; Referring Provider Nurse Practitioner; Visit Provider Nurse Practitioner
DX: C61 Malignant neoplasm of prostate (principal)
CPT/HCPCS: 36415; 84153

== ENCOUNTER → 2024-04-06 | Outpatient (CLI) | payer MEDICARE, BC, SELFPAY ==
[2024-04-06 07:58] LABS: PSA,Total- Diagnostic 0.04 ng/mL (0.0-4.0)
== END | disposition home or self-care (01) ==
LOC: LAB 07:02
PROVIDERS: PCP Nurse Practitioner Family; Referring Provider Urology; Visit Provider Urology
DX: C61 Malignant neoplasm of prostate (principal)
CPT/HCPCS: 36415; 84153

== ENCOUNTER → 2024-08-03 | Outpatient (CLI) | payer MEDICARE, BC, SELFPAY ==
[2024-08-03 09:31] LABS: PSA,Total- Diagnostic 0.07 ng/mL (0.00-4.00)
== END | disposition home or self-care (01) ==
PROVIDERS: PCP Student in an Organized Health Care Education/Training Program; Referring Provider Nurse Practitioner; Visit Provider Nurse Practitioner
DX: C61 Malignant neoplasm of prostate (principal)
CPT/HCPCS: 36415; 84153

== ENCOUNTER → 2025-01-31 | Outpatient (CLI) | payer MEDICARE, BC, SELFPAY ==
[2025-01-31 10:15] LABS: PSA,Total- Diagnostic 0.11 ng/mL (0.00-4.00)
== END | disposition home or self-care (01) ==
PROVIDERS: PCP Student in an Organized Health Care Education/Training Program; Referring Provider Urology; Visit Provider Urology
DX: C61 Malignant neoplasm of prostate (principal)
CPT/HCPCS: 36415; 84153